=== PATIENT | male | born 1960 | race American Indian/Alaskan Native ===

== ENCOUNTER 2019-06-22 00:17 | Emergency (ER) | payer MEDICARE, MEDICAID ==
--- NOTE | 2019-06-22 04:34 | Emergency Department Report ---
ED Psych HPI - General Chief Complaint: Psych Stated Complaint: 1013/MH Time Seen by Provider: 06/22/19 02:06 Source: police Mode of arrival: Ambulatory - History of Present Illness Initial Comments: 58-year-old male with a past medical history of hypertension autism presents to the hospital in police custody after verbal altercation with his brother. Patient apparently got in an argument with his brother and broke his brother's camera. The patient called the police because he needed someone to talk to and was subsequently brought to the ED for psychiatric evaluation instead of taking him to long-term. Patient is autistic, illiterate, and cannot care for himself. Patient states he is, he feels much better now. He is oriented to self, place but not to year. No physical complaints reported. 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 Cameron Burkett [phone] - Related Data Allergies Allergy/AdvReac Type Severity Reaction Status Date / Time No Known Allergies Allergy Verified 06/22/19 00:55 ED Review of Systems ROS: Stated complaint: 1013/MH Other details as noted in HPI Comment: All other systems reviewed and negative ED Past Medical Hx - Past Medical History Hx Hypertension: Yes Hx Psychiatric Treatment: Yes ([facility]) - Social History Smoking Status: Never Smoker Substance Use Type: None ED Physical Exam - General Limitations: Other - Other Other exam information: General: No acute distress Head: Atraumatic Eyes: normal appearance ENT: Moist mucous membranes Neck: Normal appearance, no midline tenderness Chest: Clear to auscultation bilaterally CV: Regular rate and rhythm Abdomen: Soft, normal bowel sounds, nontender, nondistended, no rebound or guarding Back: Normal inspection Extremity: Normal inspection, full range of motion Neuro: Alert O x 2, no facial asymmetry, speech clear, no gross motor sensory deficit Psych: Appropriate behavior, calm and cooperative Skin: No rash ED Course Vital Signs 06/22/19 06/22/19 06/22/19 01:14 04:34 07:49 Temperature 98.6 F 97.4 F L Pulse Rate 114 H 90 92 H Respiratory 20 20 Rate Blood Pressure Blood Pressure 142/96 134/92 [Left] O2 Sat by Pulse 97 98 Oximetry 06/22/19 06/22/19 10:42 11:08 Temperature Pulse Rate 92 H Respiratory 20 Rate Blood Pressure 134/92 Blood Pressure [Left] O2 Sat by Pulse 98 Oximetry ED Medical Decision Making - Lab Data Result diagrams: 06/22/19 04:38 06/22/19 04:38 - Medical Decision Making Patient is autistic and had a anger outburst. He is currently calm and cooperative. Mental health will be requested in a.m. and hopefully patient can return home with his brother. Patient's current home medications have been ordered to be continued while in the ED ua pending kcl provided for hypokalemia - Differential Diagnosis Autism, anger outbursts Critical Care Time: No Critical care attestation.: If time is entered above; I have spent that time in minutes in the direct care of this critically ill patient, excluding procedure time. ED Disposition Clinical Impression: Autistic disorder, Outbursts of anger Disposition: DC-01 TO HOME OR SELFCARE Is pt being admited?: No Condition: Stable
[2019-06-22 05:13] LABS: Basophils # (Auto) 0.1 K/mm3 (0.0-0.1); Basophils % (Auto) 0.8 % (0.0-1.8); Eosinophils % (Auto) 0.2 % (0.0-4.3); Hematocrit 42.1 % (35.5-45.6); Lymphocytes # (Auto) 3.3 K/mm3 (1.2-5.4); Lymphocytes % (Auto) 27.2 % (13.4-35.0); Mean Corpuscular HGB Conc 33 % (32-34); Mean Corpuscular Volume 92 fl (84-94); Monocytes % (Auto) 8.6 % (0.0-7.3); Red Blood Count 4.58 M/mm3 (3.65-5.03); Red Cell Distribution Width 14.4 % (13.2-15.2)
[2019-06-22 05:22] LABS: Platelet Count 231 K/mm3 (140-440)
[2019-06-22 05:24] LABS: BUN/Creatinine Ratio 11; Blood Urea Nitrogen 13 mg/dL (9-20); Calcium 9.2 mg/dL (8.4-10.2); Hemolysis Index 10
[2019-06-22] MEDS ORDERED: POTASSIUM CHLORIDE ER 20 MEQ TAB PO ONE (06:11)
[2019-06-22 06:42] LABS: Bilirubin,Urine NEG (Negative); Blood,Urine SM (Negative); Color,Urine Yellow (Yellow); Mucus,Urine 1+ /HPF; Urobilinogen,Urine < 2.0 mg/dL (<2.0)
[2019-06-22 06:47] LABS: Amphetamine Screen,Urine PRESUMPTIVE NEGATIVE; Benzodiazepines Screen,Urine PRESUMPTIVE NEGATIVE; Cannabinoid Screen,Urine PRESUMPTIVE NEGATIVE; Cocaine Screen,Urine PRESUMPTIVE NEGATIVE; Methadone Screen,Urine PRESUMPTIVE NEGATIVE; Opiate Screen,Urine PRESUMPTIVE NEGATIVE
[2019-06-22 07:50] VITALS: BP 134/92
[2019-06-22] MEDS ORDERED: METOPROLOL TARTRATE 50 MG TAB PO SCH (10:00)
[2019-06-22] MEDS ORDERED: hydroCHLOROthiazide 25 MG TAB PO SCH (10:00)
[2019-06-22] MEDS ORDERED: amLODIPine 10 MG TAB PO SCH (10:00)
== END 2019-06-22 13:19 | disposition home or self-care (01) ==
LOC: ED 00:17
DX: F84.0 Autistic disorder (principal); I10 Essential (primary) hypertension; R45.4 Irritability and anger; Z79.899 Other long term (current) drug therapy
CPT/HCPCS: 36415; 80048; 80307; 80320; 81001; 85025; G0480